=== PATIENT | male | born 2000 | race Caucasian/White ===

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

== ENCOUNTER 2018-04-18 15:58 | Emergency (ER) | payer OTHER ==
[2018-04-18 16:23] VITALS: BP 125/62
--- NOTE | 2018-04-18 16:31 | UC ---
Respiratory Complaint HPI - HPI Summary HPI Summary: 17 yo male with f/c x , 48 hours mild nasal congestion mild MOORE no myalgias no cough no cp or sob no UTI symptoms no abd pain no n/v/d no rash no stiff neck - History of Current Complaint Chief Complaint: UCGeneralIllness Stated Complaint: FEVER/CHILLS Time Seen by Provider: 04/18/18 16:24 Hx Obtained From: Patient Onset/Duration: Gradual Onset, Lasting Hours Timing: Constant Severity Initially: Mild Severity Currently: Mild Pain Intensity: 3 Associated Signs And Symptoms: Positive: Fever, Chills, Nasal Congestion - mild - Allergies/Home Medications Allergies/Adverse Reactions: Allergies Allergy/AdvReac Type Severity Reaction Status Date / Time No Known Allergies Allergy Verified 04/18/18 16:23 PMH/Surg Hx/FS Hx/Imm Hx Previously Healthy: Yes - Surgical History Surgical History: None - Family History Known Family History: Positive: Hypertension - Social History Alcohol Use: Occasionally Substance Use Type: None Smoking Status (MU): Never Smoked Tobacco Have You Smoked in the Last Year: No - Immunization History Vaccination Up to Date: Yes Review of Systems All Other Systems Reviewed And Are Negative: Yes Constitutional: Positive: Fever, Chills Skin: Positive: Negative Eyes: Positive: Negative ENT: Positive: Negative Respiratory: Positive: Negative Cardiovascular: Positive: Negative Gastrointestinal: Positive: Negative Genitourinary: Positive: Negative Motor: Positive: Negative Neurovascular: Positive: Negative Musculoskeletal: Positive: Negative Neurological: Positive: Headache Psychological: Positive: Negative Physical Exam Vital Signs: Initial Vital Signs Temp 98.3 F 04/18/18 16:20 Pulse 100 04/18/18 16:20 Resp 15 04/18/18 16:20 BP 125/62 04/18/18 16:20 Pulse Ox 98 04/18/18 16:20 Respiratory Course/Dx - Course Course Of Treatment: influenza (-), UA + ketones, + bili - Differential Dx/Diagnosis Provider Diagnosis: Viral illness Discharge - Sign-Out/Discharge Documenting (check all that apply): Patient Departure All imaging exams completed and their final reports reviewed: No Studies - Discharge Plan Condition: Stable Disposition: HOME Patient Education Materials: Viral Syndrome (ED) Referrals: No Primary Care Phys,NOPCP [Primary Care Provider] - Additional Instructions: recheck for new symptoms (bad cough/sore throat/headache/abd pain/vomitingetc) rest fluids tylenol or advil recheck in 2-3 days if still running a fever - Billing Disposition and Condition Condition: STABLE Disposition: Home
[2018-04-18 16:43] LABS: Influenza A Molecular NEGATIVE (Negative); Influenza B Molecular NEGATIVE (Negative)
== END 2018-04-18 17:06 | disposition home or self-care (01) ==
LOC: UCCORT 15:58
DX: B34.9 Viral infection, unspecified (principal); R51 Headache; R09.81 Nasal congestion
CPT/HCPCS: 81003; 99211; G0463

== ENCOUNTER 2018-04-23 15:28 | Emergency (ER) | payer OTHER ==
[2018-04-23 16:14] VITALS: BP 129/81
--- NOTE | 2018-04-23 17:16 | UC ---
Respiratory Complaint HPI - HPI Summary HPI Summary: Patient had a viral infection last week, now has a cough, feels like it is in his chest. worse at night. - History of Current Complaint Chief Complaint: UCRespiratory Stated Complaint: COUGH,ST Time Seen by Provider: 04/23/18 17:08 Hx Obtained From: Patient Onset/Duration: Sudden Onset, Lasting Days Timing: Constant Severity Initially: Mild Severity Currently: Mild Pain Intensity: 0 Character: Cough: Nonproductive Aggravating Factors: Exertion, Deep Breaths Alleviating Factors: Nothing Associated Signs And Symptoms: Positive: Dyspnea, Wheezing - Allergies/Home Medications Allergies/Adverse Reactions: Allergies Allergy/AdvReac Type Severity Reaction Status Date / Time No Known Allergies Allergy Verified 04/23/18 16:14 PMH/Surg Hx/FS Hx/Imm Hx Previously Healthy: Yes - Surgical History Surgical History: None - Family History Known Family History: Positive: None, Hypertension - Social History Alcohol Use: Occasionally Substance Use Type: None Smoking Status (MU): Never Smoked Tobacco Have You Smoked in the Last Year: No - Immunization History Vaccination Up to Date: Yes Review of Systems All Other Systems Reviewed And Are Negative: Yes Constitutional: Positive: Fatigue Skin: Positive: Negative Eyes: Positive: Negative ENT: Positive: Sore Throat Respiratory: Positive: Shortness Of Breath, Cough Cardiovascular: Positive: Negative Gastrointestinal: Positive: Negative Genitourinary: Positive: Negative Motor: Positive: Negative Neurovascular: Positive: Negative Musculoskeletal: Positive: Negative Neurological: Positive: Negative Psychological: Positive: Negative Is Patient Immunocompromised?: No Physical Exam Triage Information Reviewed: Yes Appearance: Well-Nourished, Ill-Appearing, Pain Distress Vital Signs: Initial Vital Signs Temp 97.9 F 04/23/18 16:10 Pulse 91 04/23/18 16:10 Resp 14 04/23/18 16:10 BP 129/81 04/23/18 16:10 Pulse Ox 100 04/23/18 16:10 Vital Signs Reviewed: Yes Eye Exam: Normal ENT: Positive: Pharyngeal erythema - wiht pnd, TMs normal Dental Exam: Normal Neck exam: Normal Respiratory: Positive: No respiratory distress, No accessory muscle use, Crackles - lll Cardiovascular Exam: Normal Cardiovascular: Positive: RRR, No Murmur, Pulses Normal Abdominal Exam: Normal Abdomen Description: Positive: Nontender, No Organomegaly, Soft Musculoskeletal Exam: Normal Neurological Exam: Normal Psychological Exam: Normal Skin Exam: Normal Respiratory Course/Dx - Course Course Of Treatment: hx obtained, exam performed ,meds reviewed, CHest xray obtained. - Differential Dx/Diagnosis Differential Diagnosis/HQI/PQRI: Asthma, Bronchitis, Laryngitis, Lower Resp Infection, Sinusitis Provider Diagnosis: Left lower lobe pneumonia Discharge - Sign-Out/Discharge Documenting (check all that apply): Patient Departure All imaging exams completed and their final reports reviewed: No Studies - Discharge Plan Condition: Stable Disposition: HOME Prescriptions: Albuterol HFA INHALER* [Ventolin HFA Inhaler*] 2 puff INH Q4H PRN #1 mdi PRN Reason: Cough Amoxicillin PO (*) [Amoxicillin 500 MG CAP*] 1,000 mg PO TID #28 cap Patient Education Materials: Pneumonia (ED) Forms: *Work Release Referrals: No Primary Care Phys,NOPCP [Primary Care Provider] - Additional Instructions: 1. take the medication as prescribed. 2. Get plenty of rest 3. Follow up if not improving - Billing Disposition and Condition Condition: STABLE Disposition: Home - Attestation Statements Provider Attestation: I was available for consult. This patient was seen by the [facility]. The patient was not presented to , seen by or examined by me Recommend adding azithromycin. E prescribed today. Called and spoke to charge nurse, Irasema . She will call and inform patient -Fnu MD Maria Ines
[2018-04-23] MEDS ORDERED: Amoxicillin PO (*) 500 MG CAP PO ONE (17:37)
== END 2018-04-23 17:52 | disposition home or self-care (01) ==
LOC: UCCORT 15:28
DX: J18.9 Pneumonia, unspecified organism (principal)
CPT/HCPCS: 71046; 99212; A9270-GY; G0463